=== PATIENT | female | born 1980 | race Caucasian/White ===

== ENCOUNTER → 2016-12-26 | Outpatient (CLI) | payer OTHER ==
--- NOTE | 2016-12-26 11:07 | RAD ---
Indication chronic pain. No history of recent injury. AP oblique and lateral views of the left wrist were obtained. No bony abnormality is seen
== END | disposition home or self-care (01) ==
LOC: DXRADRC 10:44
PROVIDERS: ATTEND Physician Assistant Medical
DX: G89.29 Other chronic pain (principal); M25.532 Pain in left wrist
CPT/HCPCS: 73110

== ENCOUNTER → 2020-02-18 | Outpatient (CLI) | payer BC, MEDICAID ==
--- NOTE | 2020-02-18 14:45 | RAD ---
Examination: 1. Bilateral digital diagnostic mammogram. 2. Limited right breast ultrasound. INDICATION: 39-year-old woman due for screening presenting with a palpable lump in the lateral right breast. COMPARISON: 02/14/2016 bilateral mammogram. TECHNIQUE: Bilateral CC and MLO views were obtained with 2-D digital technique. Images reviewed with computer-aided detection Targeted ultrasound of the right breast in the area of palpable concern was also performed. FINDINGS: Heterogeneously dense breast parenchyma. Left mammogram is negative. The right mammogram shows an oval partly circumscribed partly obscured isodense mass in the anterior lateral right breast that correlates with the area of palpable concern as marked with a BB marker the skin surface. Targeted ultrasound of the right breast in the area of palpable concern identifies at the 10:00 posit ion 3 cm from nipple an oval circumscribed 1.7 cm simple cyst explains the clinical finding. IMPRESSION: Benign findings on bilateral digital diagnostic mammogram and targeted right breast ultrasound. BI-RADS Category 2 Benign findings Recommend clinical management, including biopsy of any clinically suspicious findings if present. In the absence of any clinically suspicious findings, recommend routine screening next due in one year. Patient entered into a reminder system with targeted due date for next mammogram. Electronically signed by: Huseyin Kumari MD (02/18/2020 2:42 PM) [id number]
== END ==
LOC: MAMMO 13:05
PROVIDERS: ATTEND Physician Assistant Medical
DX: N60.01 Solitary cyst of right breast (principal); N63.10 Unspecified lump in the right breast, unspecified quadrant
CPT/HCPCS: 76641; 77066

== ENCOUNTER → 2021-01-14 | Outpatient (CLI) | payer BC ==
--- NOTE | 2021-01-14 15:02 | RAD ---
EXAM: Bilateral diagnostic mammogram; bilateral breast sonogram. HISTORY: 40-year-old female presents with an episode of black left nipple discharge and 3-4 months of bilateral milky nipple discharge. TECHNIQUE: Full-field digital craniocaudal and mediolateral oblique views of both breasts are obtaine d for evaluation. Computer aided detection was applied. Sonographic imaging of the subareolar aspects of both breasts was also performed. COMPARISON: 02/18/2020 BREAST PARENCHYMAL DENSITY: Level D - Extremely dense. FINDINGS: There is no new suspicious mass, microcalcification or region of architectural distortion. There is a stable circumscribed nodule within the 9:00 position of the right breast, consistent with a previously demonstrated cyst. There are stable areas of asymmetry within both breasts. Sonographic imaging of the right breast demonstrates a 2.1 cm cyst at the 9:00 position. There are mu ltiple dilated ducts within the subareolar aspect of the right breast measuring up to 2.3 mm in calib er. There is debris within a few of these ducts. No solid intraductal lesion is seen. There is no gino picious axillary lymph node. Sonographic imaging of the left breast demonstrates dilated ducts within the subareolar aspect of the breast measuring up to 3.8 cm in caliber. There is a small amount of debris within this most dilated duct. No solid intraductal lesion is seen. There is no suspicious axillary lymph node. IMPRESSION: 1. Dilated ducts within the subareolar aspects of both breasts, some which contain debris. No convinc ing solid intraductal lesion is seen. 2. 2.1 cm cyst at the 9:00 position of the right breast. 3. No new suspicious mammographic finding. 4. BI-RADS Category 2: Benign finding(s). RECOMMENDATION: Annual mammography is recommended. Continued clinical follow-up is also recommended. The patient reports that the current nipple discharge is bilateral and milky and not expressible. If there is a change in nipple discharge color and the discharge is expressible, a galactogram can be co nsidered to exclude an occult intraductal lesion. If your mammogram demonstrates that you have dense breast tissue, which could hide abnormalities, and if you have other risk factors for breast cancer that have been identified, you might benefit from s upplemental screening tests that may be suggested by your ordering physician. Dense breast tissue, i n and of itself, is a relatively common condition. This information is not provided to cause undue c oncern, but rather to raise your awareness and to promote discussion with your physician regarding th e presence of other risk factors, in addition to dense breast tissue. A report of your mammography re sults will be sent to you and your physician. You should contact your physician if you have any ques tions or concerns regarding this report. Mammography is a sensitive method for finding small breast cancers, but it does not detect them all a nd is not a substitute for careful clinical examination. A negative mammogram does not negate a clin ically suspicious finding and should not result in delay in biopsying a clinically suspicious abnorma lity. PQRS compliance statement - Patient information was entered into a reminder system with a target due date for the next mammogram. "Our facility is accredited by the [employer] Mammography [employer]." Electronically signed by: Gaviota Amador MD (01/14/2021 2:59 PM) [id number]
== END ==
LOC: MAMMO 13:49
PROVIDERS: ATTEND Physician Assistant Medical
DX: N60.01 Solitary cyst of right breast (principal); R92.8 Other abnormal and inconclusive findings on diagnostic imaging of breast; N63.10 Unspecified lump in the right breast, unspecified quadrant
CPT/HCPCS: 77066; 76642-50